=== PATIENT | male | born 1955 | race Caucasian/White ===

== ENCOUNTER 2017-02-24 09:35 | Observation (INO) | payer SELFPAY ==
[~2017-02-24 09:35] MED LIST: IBUP800T23 PO; NOVO7030P2 SQ
[2017-02-24 09:37] VITALS: BP 164/79; PULSE 99; RESP 15; TEMP 98.7; O2SAT 98
[2017-02-24] MEDS ORDERED: NOVO7030P2 SQ (09:53)
--- NOTE | 2017-02-24 10:02 | PD ---
HPI Chief Complaint: ENT Complaint Time Seen by Provider: 09:48 Travel History International Travel<30 days: No Contact w/Intl Traveler<30days: No Traveled to known affect area: No History of Present Illness HPI This 61-year-old man who presents to the emergency room complaining of sore throat difficulty swallowing and muffled voice. He states that he's had strep throat many times in the past and this feels similar. He felt like when he ate croatian fries last night for dinner he scratched the back of his throat. He feels like it got stuck in his throat. He hasn't really been able to swallow well since then. He tried to take pills this morning and felt stuck. He feels like swelling and constriction in his throat. He had subjective chills and sweats overnight. He has no fever now. No cough. He otherwise has been feeling generally well and healthy. His a history diabetes, takes 70/30 insulin for it. He has COPD but he does not take any medications for this. Is not on any inhaled steroids. History Past Medical History Narrative Medical Diabetes COPD Hypertension Tetanus Vaccination: Unknown Influenza Vaccination: No Social History Alcohol Use: Yes (daily) Tobacco Use: No Allergies-Medications (Allergen,Severity, Reaction): Coded Allergies: No Known Allergies (Verified , 02/24/17) Reported Meds & Prescriptions Reported Meds & Active Scripts Active Reported Novolin 70-30 Inj (Insulin Human Isoph/Insulin Regular) 1,000 Unit/10 Ml Vial 42 Units SQ Review of Systems Except as stated in HPI: all other systems reviewed are Neg Physical Exam Narrative GENERAL: Well-appearing 61-year-old man, no acute distress. Able to speak but his voice just on the little bit off. SKIN: Focused skin assessment warm/dry. HEAD: Atraumatic. Normocephalic. EYES: Pupils equal and round. No scleral icterus. No injection or drainage. ENT: No nasal bleeding or discharge. Mucous membranes pink and moist. Enlarged tonsils with a little bit of inflammation in exudates especially on the left. NECK: Trachea midline. Mild adenopathy with tenderness especially on the left. CARDIOVASCULAR: Regular rate and rhythm. No murmur appreciated. RESPIRATORY: No accessory muscle use. Clear to auscultation. Breath sounds equal bilaterally. GASTROINTESTINAL: Abdomen soft, non-tender, nondistended. Hepatic and splenic margins not palpable. MUSCULOSKELETAL: No obvious deformities. Data Data Last Documented VS Vital Signs Date Time Temp Pulse Resp B/P Pulse Ox O2 Delivery O2 Flow Rate FiO2 02/24/17 09:37 98.7 99 15 164/79 98 Orders Soft Tissue Neck (02/24/17 ) Group A Rapid Strep Screen (02/24/17 09:57) Strep Culture (Group A) (02/24/17 10:00) Iv Access Insert/Monitor (02/24/17 10:45) Complete Blood Count With Diff (02/24/17 10:45) Comprehensive Metabolic Panel (02/24/17 10:45) Sodium Chlor 0.9% 1000 Ml Inj (Ns 1000 M (02/24/17 10:45) Dexamethasone Inj (Decadron Inj) (02/24/17 10:45) Ampicillin-Sulbactam Inj (Unasyn Inj) (02/24/17 10:45) Admit Order (Ed Use Only) (02/24/17 ) Labs Laboratory Tests Test 02/24/17 11:17 White Blood Count 10.2 TH/MM3 Red Blood Count 4.90 MIL/MM3 Hemoglobin 14.5 GM/DL Hematocrit 41.6 % Mean Corpuscular Volume 84.9 FL Mean Corpuscular Hemoglobin 29.7 PG Mean Corpuscular Hemoglobin 34.9 % Concent Red Cell Distribution Width 13.0 % Platelet Count 258 TH/MM3 Mean Platelet Volume 8.0 FL Neutrophils (%) (Auto) 77.1 % Lymphocytes (%) (Auto) 12.4 % Monocytes (%) (Auto) 9.2 % Eosinophils (%) (Auto) 0.4 % Basophils (%) (Auto) 0.9 % Neutrophils # (Auto) 7.8 TH/MM3 Lymphocytes # (Auto) 1.3 TH/MM3 Monocytes # (Auto) 0.9 TH/MM3 Eosinophils # (Auto) 0.0 TH/MM3 Basophils # (Auto) 0.1 TH/MM3 CBC Comment DIFF FINAL Differential Comment Sodium Level 136 MEQ/L Potassium Level 4.3 MEQ/L Chloride Level 99 MEQ/L Carbon Dioxide Level 27.9 MEQ/L Anion Gap 9 MEQ/L Blood Urea Nitrogen 16 MG/DL Creatinine 1.33 MG/DL Estimat Glomerular Filtration 55 ML/MIN Rate Random Glucose 278 MG/DL Calcium Level 8.9 MG/DL Total Bilirubin 1.3 MG/DL Aspartate Amino Transf 13 U/L (AST/SGOT) Alanine Aminotransferase 24 U/L (ALT/SGPT) Alkaline Phosphatase 44 U/L Total Protein 7.5 GM/DL Albumin 3.6 GM/DL [facility] Medical Decision Making Medical Screen Exam Complete: Yes Emergency Medical Condition: Yes Interpretation(s) LABS: CBC unremarkable. CMP remarkable for mildly elevated glucose. Soft tissue neck x-ray: Possible mild thickening of the epiglottis. Differential Diagnosis Strep pharyngitis, tonsillitis, epiglottitis, pharyngeal scratch or irritation, foreign body, other Narrative Course Medical decision making This 61-year-old man who presents emergency department with tightness in his throat and fullness in his throat, swallowing difficulties, pain, subjective chills, cervical adenopathy, and history of recurrent strep throat. He looks well. He does have some tonsillitis findings on exam. We'll check strep. We' ll also check a soft tissue neck. He does not look toxic. He is not drooling. Likely treatment with steroids and antibiotics. FINAL: 61-year-old man, sore throat muffled voice subjective chills with x-ray with possible mild thickening of the epiglottis. He's having difficulty swallowing but is not drooling. He describes minimal the mother breathing. He overall looks very well. He was given IV steroids IV Augmentin, we'll plan on watching him overnight in the hospital. If he improves I don't think he needs any further evaluation. Consider ENT consult if needed. Diagnosis Primary Impression: Dysphagia Admitting Information Admitting Physician Requests: Harsh Garcia MD Feb 24, 2017 10:02
--- NOTE | 2017-02-24 10:41 | RADRPT ---
EXAM DATE/TIME: 02/24/2017 10:11 [place] COMPARISON: No previous studies available for comparison. INDICATIONS : Inflammation. MEDICAL HISTORY : None. SURGICAL HISTORY : None. ENCOUNTER: Initial ACUITY: 1 day PAIN SCORE: 7/10 LOCATION: Bilateral neck Anterior FINDINGS: 2 views of the neck soft tissues demonstrate no prevertebral soft tissue swelling. There is no deviat ion of the airway. Epiglottis may be minimally thickened. Larynx demonstrates no abnormality. There i s degenerative disc disease with anterior osteophytes at C3-C4. Visualized upper lung zones are clear . No radiopaque foreign bodies visualized. CONCLUSION: Possible mild thickening of the epiglottis. Otherwise, no abnormality is identified. Galileo Luz MD on February 24, 2017 at 10:37 Board Certified Radiologist. This report was verified electronically.
[2017-02-24] MEDS ORDERED: SODIUM CHLOR 0.9% 1000 ML INJ 1,000 ML IV ONE (10:45)
[2017-02-24] MEDS ORDERED: AMPICILLIN-SULBACTAM INJ 3 GM in SODIUM CHLORIDE 0.9% INJ 100 ML IV ONE (10:45)
[2017-02-24] MEDS ORDERED: DEXAMETHASONE SOD PHOS 20 MG/5 ML VIAL IV PUSH ONE (10:45)
[2017-02-24 11:28] LABS: AUTOMATED NEUTROPHIL # 7.8 TH/MM3 (1.8-7.7); BASOPHIL # 0.1 TH/MM3 (0-0.2); BASOPHIL % 0.9 % (0.0-2.0); EOSINOPHIL % 0.4 % (0.0-4.0); HEMATOCRIT 41.6 % (39.0-51.0); HEMO FLAGS DIFF FINAL; LYMPH % 12.4 % (9.0-44.0); LYMPHOCYTE # 1.3 TH/MM3 (1.0-4.8); MEAN CELL VOLUME 84.9 FL (80.0-100.0); MEAN CORPUSCULAR HEMOGLOBIN 29.7 PG (27.0-34.0); MEAN CORPUSCULAR HGB CONC 34.9 % (32.0-36.0); MONO % 9.2 % (0.0-8.0); NEUT % 77.1 % (16.0-70.0); PLATELET COUNT 258 TH/MM3 (150-450); WHITE BLOOD COUNT 10.2 TH/MM3 (4.0-11.0)
[2017-02-24] MEDS ORDERED: ONDANSETRON HCL 4 MG/2 ML VIAL IVP PRN (11:30)
[2017-02-24] MEDS ORDERED: METOCLOPRAMIDE HCL 10 MG/2 ML VIAL IV PUSH PRN (11:30)
[2017-02-24] MEDS ORDERED: oxyCODONE/ACETAMINOPHEN 10 MG/325 MG TAB PO PRN (11:30)
[2017-02-24] MEDS ORDERED: PROCHLORPERAZINE 25 MG SUPP RECTAL PRN (11:30)
[2017-02-24] MEDS ORDERED: LACTULOSE SYRUP 20 GM/30 ML CUP PO PRN (11:30)
[2017-02-24] MEDS ORDERED: MORPHINE SULFATE 4 MG/ML INJ IV PRN ×3 (11:30)
[2017-02-24] MEDS ORDERED: oxyCODONE/ACETAMINOPHEN 5 MG/325 MG TAB PO PRN (11:30)
[2017-02-24] MEDS ORDERED: BISACODYL 10 MG SUPP RECTAL PRN (11:30)
[2017-02-24] MEDS ORDERED: NALOXONE HCL 0.4 MG/ML AMP IV PRN (11:30)
[2017-02-24] MEDS ORDERED: ZOLPIDEM TARTRATE 5 MG TAB PO PRN (11:30)
[2017-02-24] MEDS ORDERED: SODIUM CHLORIDE 0.9% FLUSH 10 ML FLUSH IV FLUSH PRN ×2 (11:30→15:45)
[2017-02-24] MEDS ORDERED: SENNOSIDES 8.6 MG TAB PO PRN (11:30)
[2017-02-24] MEDS ORDERED: ACETAMINOPHEN 325 MG TAB PO PRN ×2 (11:30)
[2017-02-24] MEDS ORDERED: MAGNESIUM HYDROXIDE SUSP 30 ML CUP PO PRN (11:30)
[2017-02-24] MEDS ORDERED: GLUCAGON 1 MG/ML VIAL OTHER PRN (11:45)
[2017-02-24] MEDS ORDERED: DEXTROSE 50% IN WATER 50 ML VIAL(D50) IV PRN (11:45)
[2017-02-24 11:49] LABS: ALT (GPT) 24 U/L (12-78); ANION GAP 9 MEQ/L (5-15); AST (GOT) 13 U/L (15-37); BICARBONATE 27.9 MEQ/L (21.0-32.0); BLOOD UREA NITROGEN 16 MG/DL (7-18); CHLORIDE 99 MEQ/L (98-107); GLOMERULAR FILTRATION RATE 55 ML/MIN (>89); POTASSIUM 4.3 MEQ/L (3.5-5.1); SODIUM (NA) 136 MEQ/L (136-145)
[2017-02-24 11:51] LABS: ALKALINE PHOSPHATASE 44 U/L (45-117); TOTAL BILIRUBIN ADULT 1.3 MG/DL (0.2-1.0)
[2017-02-24 12:40] VITALS: BP 154/68; PULSE 93; RESP 22; O2SAT 98
[2017-02-24] MEDS: SODIUM CHLOR 0.9% 1000 ML INJ 1,000 ML IV SCH ×2 (12:41→23:30)
--- NOTE | 2017-02-24 13:37 | HHI.HP ---
[facility] No Primary Care Physician Admission Diagnosis dysphagia, possible epiglottitis Diagnoses: (1) Dysphagia Diagnosis: Principal (2) Diabetes Diagnosis: Principal (3) Alcohol abuse Diagnosis: Secondary (4) Noncompliance Diagnosis: Secondary (5) COPD (chronic obstructive pulmonary disease) Diagnosis: Secondary (6) Hypertension Diagnosis: Secondary (7) Renal insufficiency Chief Complaint: Dysphagia Travel History International Travel<30 Days: No Contact w/Intl Traveler <30 Da: No Traveled to Known Affected Are: No History of Present Illness Written by Maribel Edouard, acting as scribe for Dr. Goodman on 02/24/17 at 1337. Mr. Ordoñez is a 61-year-old male patient with a known medical history of diabetes mellitus, COPD and hypertension who presented to the ED with complaints of difficulty swallowing. Patient states that as he was eating dinner last night he experienced some dysphagia, throat pain and a feeling "of the food getting stuck". Pain sore and throbbing in nature, mostly in the left side of the throat and rated his pain 10/10 at its worse. Also states that he woke up this morning and attempted swallowing his pills and felt "like they were getting stuck". Last evening he admits to associated chills and feeling feverish but never took his temperature. Does complain of associated cough. Patient did take Aleve this morning with little pain relief. Does state that he has a history of recurrent strep in the past but it has been several years since his last infection. Denies any other illness or associated symptoms including headaches, chest pain, palpitations, shortness of breath, abdominal pain, nausea, vomiting, diarrhea or dysuria. Denies any change in appetite. States he has not seen his PCP in many years due to lack of insurance and inability to afford his medications. He currently takes insulin at home but has not had his a1c checked in many years. PATIENT STATES THAT HE DRINKS ANYWHERE FROM 2 TO 12 BEERS A DAY MOST DAYS NOW Review of Systems Constitutional: COMPLAINS OF: Diaphoretic episodes, Fatigue, Fever, Chills, Change in appetite, DENIES: Weight gain, Weight loss, Dizziness Endocrine: DENIES: Heat/cold intolerance, Polydipsia, Polyuria, Polyphagia Eyes: DENIES: Blurred vision, Diplopia, Eye inflammation, Eye pain, Vision loss , Photosensitivity Ears, nose, mouth, throat: COMPLAINS OF: Throat pain, Odynophagia, DENIES: Tinnitus, Hearing loss, Vertigo, Nasal discharge, Oral lesions Respiratory: COMPLAINS OF: Cough, Sputum production, DENIES: Apneas, Snoring, Wheezing Cardiovascular: DENIES: Chest pain, Palpitations, Syncope, Dyspnea on Exertion , PND Gastrointestinal: COMPLAINS OF: Difficulty Swallowing, DENIES: Abdominal pain , Black stools, Bloody stools, Constipation, Diarrhea, Nausea, Vomiting Musculoskeletal: DENIES: Joint pain, Muscle aches, Stiffness, Joint Swelling Hematologic/lymphatic: DENIES: Bruising Immunologic/allergic: DENIES: Eczema, Urticaria Neurologic: COMPLAINS OF: Speech Problems, DENIES: Abnormal gait, Headache, Localized weakness, Paresthesias, Seizures Psychiatric: COMPLAINS OF: Anxiety, Depression, DENIES: Confusion, Agitation, Suicidal Ideation, Homicidal Ideation, Delusions Except as stated in HPI: all other systems reviewed are Neg Past Family Social History Past Medical History Type 2 diabetes mellitus COPD Hypertension NONCOMPLIANCE Past Surgical History Denies any surgical history. Reported Medications Reported Meds & Active Scripts Active Reported Novolin 70-30 Inj (Insulin Human Isoph/Insulin Regular) 1,000 Unit/10 Ml Vial 42 Units SQ Allergies: Coded Allergies: No Known Allergies (Verified , 02/24/17) Active Ordered Medications Current Medications Medications (Trade) Dose Ordered Sig/Nasrin Route Start Time Stop Time Status Last Admin (NS 1000 ml Inj) 1,000 ml @ 83 mls/hr Q12H3M IV 02/24/17 11:27 02/24/17 12:41 (NS Flush) 2 ml UNSCH PRN IV FLUSH 02/24/17 11:30 (NS Flush) 2 ml BID IV FLUSH 02/24/17 21:00 (Tylenol) 650 mg Q4H PRN PO 02/24/17 11:30 UNV (Zofran Inj) 4 mg Q6H PRN IVP 02/24/17 11:30 UNV (Reglan Inj) 5 mg Q6H PRN IV PUSH 02/24/17 11:30 UNV (Compazine Supp) 25 mg Q12H PRN RECTAL 02/24/17 11:30 (Ambien) 5 mg HS PRN PO 02/24/17 11:30 (Lovenox Inj) 40 mg Q24H SQ 02/24/17 11:30 UNV (Tylenol) 650 mg Q6H PRN PO 02/24/17 11:30 UNV (Percocet 5-325 Mg) 1 tab Q6H PRN PO 02/24/17 11:30 UNV (Percocet 10-325 Mg) 1 tab Q6H PRN PO 02/24/17 11:30 UNV (Morphine Inj) 2 mg Q3H PRN IV 02/24/17 11:30 UNV (Morphine Inj) 4 mg Q3H PRN IV 02/24/17 11:30 UNV (Morphine Inj) 4 mg Q3H PRN IV 02/24/17 11:30 UNV (Narcan Inj) 0.4 mg UNSCH PRN IV 02/24/17 11:30 UNV (Lexie-Colace) 1 tab BID PO 02/24/17 21:00 (Milk Of Magnesia Liq) 30 ml Q12H PRN PO 02/24/17 11:30 (Senokot) 17.2 mg Q12H PRN PO 02/24/17 11:30 (Dulcolax Supp) 10 mg DAILY PRN RECTAL 02/24/17 11:30 (Lactulose Liq) 30 ml DAILY PRN PO 02/24/17 11:30 (D50w (Vial) Inj) 50 ml UNSCH PRN IV 02/24/17 11:45 (Glucagon Inj) 1 mg UNSCH PRN OTHER 02/24/17 11:45 (Unasyn Inj) 3 gm Q6H IM 02/24/17 11:45 UNV (Decadron Inj) 4 mg Q12HR IV PUSH 02/24/17 21:00 UNV (NovoLIN 70/30 INJ) 40 units BID@08,17 SQ 02/24/17 17:00 UNV Family History Paternal medical history significant for CABG, at age 86 years of age. No significant maternal family medical history. Social History Patient is but , lives with daughter. Denies any current tobacco use, admits to a 40 year smoking history, quit July 2010. Admits to occasional alcohol use. Does admit to smoking marijuana daily. Patient states he smokes marijuana daily Patient states he has beer daily anywhere from 2-12 beers a day Placed on CIWA protocol Physical Exam Vital Signs Vital Signs Date Time Temp Pulse Resp B/P Pulse Ox O2 Delivery O2 Flow Rate FiO2 02/24/17 12:40 93 22 154/68 98 Room Air 02/24/17 09:37 98.7 99 15 164/79 98 Physical Exam GENERAL: Well-nourished, well-developed patient male patient, in no apparent distress. SKIN: No rashes, ecchymoses or lesions. Warm and dry. HEAD: Atraumatic. Normocephalic. Pupils equal round and reactive. Extraocular motions intact. No injection or drainage. Nose without bleeding. Throat with erythema. Left tonsil swelling. Cervical adenopathy. No exudate noted. Uvula midline. Airway patent. Tongue is midline NECK: No JVD. Supple. CARDIOVASCULAR: Regular rate and rhythm. No murmur appreciated. S1-S2 no S3 or S4 no heave or thrill or rub or gallop RESPIRATORY: Clear to auscultation. Breath sounds equal bilaterally. No wheezes , rales, or rhonchi. GASTROINTESTINAL: Abdomen soft, non-tender, nondistended. No guarding. Obese MUSCULOSKELETAL: Extremities without clubbing, cyanosis, or edema. No joint tenderness, effusion, or edema noted. NEUROLOGICAL: Awake and alert. Cranial nerves II through XII intact. Motor and sensory grossly within normal limits. Five out of 5 muscle strength in all muscle groups. Normal speech. Insight and judgment is good mood and behaviors appropriate Laboratory Laboratory Tests Test 02/24/17 11:17 White Blood Count 10.2 Red Blood Count 4.90 Hemoglobin 14.5 Hematocrit 41.6 Mean Corpuscular Volume 84.9 Mean Corpuscular Hemoglobin 29.7 Mean Corpuscular Hemoglobin 34.9 Concent Red Cell Distribution Width 13.0 Platelet Count 258 Mean Platelet Volume 8.0 Neutrophils (%) (Auto) 77.1 Lymphocytes (%) (Auto) 12.4 Monocytes (%) (Auto) 9.2 Eosinophils (%) (Auto) 0.4 Basophils (%) (Auto) 0.9 Neutrophils # (Auto) 7.8 Lymphocytes # (Auto) 1.3 Monocytes # (Auto) 0.9 Eosinophils # (Auto) 0.0 Basophils # (Auto) 0.1 CBC Comment DIFF FINAL Differential Comment Sodium Level 136 Potassium Level 4.3 Chloride Level 99 Carbon Dioxide Level 27.9 Anion Gap 9 Blood Urea Nitrogen 16 Creatinine 1.33 Estimat Glomerular Filtration 55 Rate Random Glucose 278 Calcium Level 8.9 Total Bilirubin 1.3 Aspartate Amino Transf 13 (AST/SGOT) Alanine Aminotransferase 24 (ALT/SGPT) Alkaline Phosphatase 44 Total Protein 7.5 Albumin 3.6 Date/Time Procedure Status Source Growth 02/24/17 10:00 Group A Streptococcus Screen ([facility]) - Final Complete Throat 02/24/17 10:00 Group A Streptococcus Screen Received Throat Pending Result Diagram: 02/24/17 1117 02/24/17 1117 Imaging Last Impressions Soft Tissue Neck X-Ray 02/24/17 0000 Signed Impressions: Service Date/Time: Sunday, February 24, 2017 10:11 - CONCLUSION: Possible mild thickening of the epiglottis. Otherwise, no abnormality is identified. Galileo Luz MD Assessment and Plan Problem List: (1) Dysphagia ICD Code: R13.10 Status: Acute (2) Diabetes ICD Code: E11.9 Status: Acute (3) Noncompliance ICD Code: Z91.19 Status: Acute (4) COPD (chronic obstructive pulmonary disease) ICD Code: J44.9 Status: Acute (5) Hypertension ICD Code: I10 Status: Acute (6) Alcohol abuse ICD Code: F10.10 Status: Acute Assessment and Plan Mr. Ordoñez is a 61-year-old male patient with a known medical history of diabetes mellitus, COPD and hypertension who presented to the ED with complaints of difficulty swallowing. Patient states that as he as eating dinner last night he experienced some dysphagia, throat pain and a feeling "of the food getting stuck". Patient states his health has generally been good and the only medication he takes in his Insulin 70/30 40 units BID. Has not seen his PCP in many years due to lack of insurance. Does not check his BP or a1C regularly or take any antihypertensives. Has quit smoking roughly 6 years ago. Positive for a [id number] smoking history. Epiglottis with associated dysphagia: Soft tissue neck x-ray obtained and reviewed showing mild thickening of the epiglottis. Rapid strep test negative. Throat culture retrieved and pending. Follow. Decadron 10 mg IV x 1 given in ED. Scheduled Decadron 4 mg IV q12hr. Ampicillin 3 g IV x 1 given in ED. Start Unasyn 3 g q6h IV. Control pain, Oxycodone PO PRN per pain scale. Morphine IV PRN per pain scale. Status post 1L NS bolus given in ED. Prevent dehydration, continue NS at 83 ml/hr. Consulted speech therapy, recommendations for clear liquid diet at this time. No aspiration noted. Continue to monitor. Acute kidney injury, unknown cause: Creatinine 1.33 on presentation, no prior records to compare history. Was given 1 L NS bolus in ED. Will continue IVF. Hypertension, chronic: Mildly elevated, systolic 150's. Patient does not take any antihypertensives at home, will continue to monitor. May start low dose antihypertensive if needed. When necessary clonidine Type 2 diabetes mellitus: Random glucose 278 on presentation. ACCU checks ACHS. Sliding scale insulin, cover as needed. Continue home insulin, Novolin 70/30 40 units BID. Will consult life educator and obtain Hemoglobin a1c. Follow. Noncompliance due to funds DVT Prophylaxis: SCDs/Lovenox 40 mg sq q24hr. Continue on GI and DVT prophylaxis The exam, history, and the medical decision-making described in the above note were completed with the assistance of the mid-level provider. I reviewed and agree with the findings presented. I attest that I had a [id number] encounter with the patient on the same day, and personally performed and documented my assessment and findings in the medical record. Problem Qualifiers (1) Diabetes: Maribel Edouard Feb 24, 2017 13:37 Narayan Ayala DO Feb 24, 2017 15:33
[2017-02-24 14:08] VITALS: BP 155/78; PULSE 93; RESP 18; TEMP 98.3; O2SAT 94
[2017-02-24] MEDS ORDERED: AMPICILLIN-SULBACTAM INJ 3 GM VIAL IM SCH (15:00)
[2017-02-24] MEDS: AMPICILLIN-SULBACTAM INJ 3 GM in SODIUM CHLORIDE 0.9% INJ 100 ML IV SCH ×2 (15:42→22:55)
[2017-02-24] MEDS: ENOXAPARIN SODIUM 40 MG/0.4 ML SYRINGE SQ SCH (15:43)
[2017-02-24] MEDS: PANTOPRAZOLE SOD 40 MG DELAYED RELEASE TAB PO SCH (15:45)
[2017-02-24] MEDS ORDERED: cloNIDine HCL 0.1 MG TAB PO PRN (15:45)
[2017-02-24] MEDS ORDERED: LORazepam 2 MG TAB PO PRN (15:45)
[2017-02-24] MEDS ORDERED: FLUMAZENIL 0.5 MG/5 ML VIAL IV PUSH PRN (15:45)
[2017-02-24] MEDS ORDERED: LORazepam 1 MG TAB PO PRN (15:45)
[2017-02-24] MEDS ORDERED: LORazepam 2 MG/ML VIAL IV PUSH PRN ×4 (15:45)
[2017-02-24] MEDS: MULTIVITAMINS/MINERALS THERAPEUTIC TAB PO SCH (16:46)
[2017-02-24] MEDS: THIAMINE HCL 100 MG TAB PO SCH (16:46)
[2017-02-24] MEDS: FOLIC ACID 1 MG TAB PO SCH (16:46)
[2017-02-24] MEDS: INSULIN ASPART SUPPLEMENTAL SCALE SQ SCH ×2 (17:09→20:22)
[2017-02-24] MEDS: INSULIN HUMAN NPH/R 70/30 1,000 UNITS/10 ML VIAL SQ SCH (17:10)
[2017-02-24 19:32] VITALS: BP 169/78; PULSE 101; RESP 18; TEMP 98; O2SAT 96
[2017-02-24 19:50] VITALS: O2SAT 97
[2017-02-24] MEDS: DOCUSATE SODIUM 50 MG/SENNA 8.6 MG TAB PO SCH (20:09)
[2017-02-24] MEDS: DEXAMETHASONE SOD PHOS 4 MG/ML VIAL IV PUSH SCH (20:21)
[2017-02-24] MEDS: SODIUM CHLORIDE 0.9% FLUSH 10 ML FLUSH IV FLUSH SCH (20:23)
[2017-02-24] MEDS ORDERED: SODIUM CHLORIDE 0.9% FLUSH 10 ML FLUSH IV FLUSH SCH (21:00)
[2017-02-24 23:36] VITALS: BP 142/78; PULSE 67; RESP 18; TEMP 98.4; O2SAT 97
[2017-02-25] VITALS (7 sets, daily range): BP systolic 134–170; BP diastolic 65–78; PULSE 74–84; RESP 18–21; TEMP 97.4–98.5; O2SAT 95–100
[2017-02-25] MEDS: AMPICILLIN-SULBACTAM INJ 3 GM in SODIUM CHLORIDE 0.9% INJ 100 ML IV SCH (04:22)
[2017-02-25] MEDS: INSULIN ASPART SUPPLEMENTAL SCALE SQ SCH ×4 (06:35→20:42)
[2017-02-25] MEDS: SODIUM CHLOR 0.9% 1000 ML INJ 1,000 ML IV SCH (06:51)
[2017-02-25] MEDS: INSULIN HUMAN NPH/R 70/30 1,000 UNITS/10 ML VIAL SQ SCH ×2 (08:14→17:20)
[2017-02-25] MEDS: FOLIC ACID 1 MG TAB PO SCH (08:15)
[2017-02-25] MEDS: PANTOPRAZOLE SOD 40 MG DELAYED RELEASE TAB PO SCH (08:15)
[2017-02-25] MEDS: THIAMINE HCL 100 MG TAB PO SCH (08:15)
[2017-02-25] MEDS: MULTIVITAMINS/MINERALS THERAPEUTIC TAB PO SCH (08:15)
[2017-02-25] MEDS: DEXAMETHASONE SOD PHOS 4 MG/ML VIAL IV PUSH SCH (08:17)
[2017-02-25] MEDS: SODIUM CHLORIDE 0.9% FLUSH 10 ML FLUSH IV FLUSH SCH ×2 (08:18→20:43)
[2017-02-25] MEDS: DOCUSATE SODIUM 50 MG/SENNA 8.6 MG TAB PO SCH ×2 (08:20→20:42)
--- NOTE | 2017-02-25 09:34 | HHI.PR ---
Subjective Remarks Follow up for epiglottitis/tonsillitis. The patient reports feeling much better. Still reports some mild odynophagia but improved compared to yesterday. His left cervical lymphadenopathy also improved, much less tender to palpation today. He reports an occasional cough productive of clear sputum. Denies fevers /chills. He is tolerating oral intake. He reports he's supposed to leave for [place] tomorrow morning, plans on driving, wants to be discharged early in am. Objective Vitals Vital Signs Date Time Temp Pulse Resp B/P Pulse Ox O2 Delivery O2 Flow Rate FiO2 02/25/17 07:53 97.4 80 18 162/78 97 02/25/17 04:20 98.0 74 21 134/76 100 02/24/17 23:36 98.4 67 18 142/78 97 02/24/17 19:50 97 02/24/17 19:32 98.0 101 18 169/78 96 02/24/17 14:08 98.3 93 18 155/78 94 02/24/17 12:40 93 22 154/68 98 Room Air 02/24/17 09:37 98.7 99 15 164/79 98 Result Diagram: 02/24/17 1117 02/24/17 1117 Imaging Last Impressions Soft Tissue Neck X-Ray 02/24/17 0000 Signed Impressions: Service Date/Time: Friday, February 24, 2017 10:11 - CONCLUSION: Possible mild thickening of the epiglottis. Otherwise, no abnormality is identified. Galileo Luz MD Objective Remarks GENERAL: Well-nourished, well-developed male patient in [facility]. SKIN: Warm and dry. No rash. HEAD: Normocephalic. Atraumatic. ENT: Mucous membranes pink and moist. Posterior oropharynx with mild erythema, left tonsillar edema (grade 1) with exudate. Epiglottis not visualized. Uvula midline. NECK: Supple. Trachea midline. Left anterior cervical lymphadenopathy with minimal TTP. CARDIOVASCULAR: Regular rate and rhythm. S1, S2 noted. No murmur appreciated. RESPIRATORY: No accessory muscle use. Clear to auscultation. Breath sounds equal bilaterally. No stridor. GASTROINTESTINAL: Abdomen soft, non-tender, nondistended. Normoactive bowel sounds x4. MUSCULOSKELETAL: No obvious deformities. Extremities without clubbing, cyanosis , or edema. NEUROLOGICAL: Awake and alert. No obvious cranial nerve deficits. Motor grossly within normal limits. Normal speech. PSYCHIATRIC: Appropriate mood and affect; insight and judgment normal. Medications and IVs Current Medications Medications (Trade) Dose Ordered Sig/Nasrin Route Start Time Stop Time Status Last Admin (NS 1000 ml Inj) 1,000 ml @ 83 mls/hr Q12H3M IV 02/24/17 11:27 02/25/17 06:51 (NS Flush) 2 ml UNSCH PRN IV FLUSH 02/24/17 11:30 (NS Flush) 2 ml BID IV FLUSH 02/24/17 21:00 02/25/17 08:18 (Tylenol) 650 mg Q4H PRN PO 02/24/17 11:30 (Zofran Inj) 4 mg Q6H PRN IVP 02/24/17 11:30 (Reglan Inj) 5 mg Q6H PRN IV PUSH 02/24/17 11:30 (Compazine Supp) 25 mg Q12H PRN RECTAL 02/24/17 11:30 (Ambien) 5 mg HS PRN PO 02/24/17 11:30 (Lovenox Inj) 40 mg Q24H SQ 02/24/17 15:00 02/24/17 15:43 (Tylenol) 650 mg Q6H PRN PO 02/24/17 11:30 (Percocet 5-325 Mg) 1 tab Q6H PRN PO 02/24/17 11:30 (Percocet 10-325 Mg) 1 tab Q6H PRN PO 02/24/17 11:30 (Morphine Inj) 2 mg Q3H PRN IV 02/24/17 11:30 (Morphine Inj) 4 mg Q3H PRN IV 02/24/17 11:30 (Morphine Inj) 4 mg Q3H PRN IV 02/24/17 11:30 (Narcan Inj) 0.4 mg UNSCH PRN IV 02/24/17 11:30 (Lexie-Colace) 1 tab BID PO 02/24/17 21:00 02/24/17 20:09 (Milk Of Magnesia Liq) 30 ml Q12H PRN PO 02/24/17 11:30 (Senokot) 17.2 mg Q12H PRN PO 02/24/17 11:30 (Dulcolax Supp) 10 mg DAILY PRN RECTAL 02/24/17 11:30 (Lactulose Liq) 30 ml DAILY PRN PO 02/24/17 11:30 (D50w (Vial) Inj) 50 ml UNSCH PRN IV 02/24/17 11:45 (Glucagon Inj) 1 mg UNSCH PRN OTHER 02/24/17 11:45 (NovoLIN 70/30 INJ) 40 units BID@08,17 SQ 02/24/17 17:00 02/25/17 08:14 (Romazicon Inj) 0.2 mg Q1M PRN IV PUSH 02/24/17 15:45 (Ativan) 1 mg Q4H PRN PO 02/24/17 15:45 (Ativan Inj) 1 mg Q4H PRN IV PUSH 02/24/17 15:45 (Ativan) 2 mg Q2H PRN PO 02/24/17 15:45 (Ativan Inj) 2 mg Q2H PRN IV PUSH 02/24/17 15:45 (Ativan Inj) 2 mg Q1H PRN IV PUSH 02/24/17 15:45 (Ativan Inj) 2 mg Q15M PRN IV PUSH 02/24/17 15:45 (Folate) 1 mg DAILY PO 02/24/17 15:45 03/01/17 15:44 02/25/17 08:15 (Vitamin B1) 100 mg DAILY PO 02/24/17 15:45 02/25/17 08:15 (Theragran M Tab) 1 tab DAILY PO 02/24/17 15:45 03/01/17 15:44 02/25/17 08:15 (Protonix) 40 mg DAILY PO 02/24/17 15:45 02/25/17 08:15 (Catapres) 0.1 mg Q6H PRN PO 02/24/17 15:45 (Deltasone) 40 mg DAILY PO 02/26/17 08:00 UNV A/P Problem List: (1) Dysphagia ICD Code: R13.10 Status: Acute (2) Diabetes ICD Code: E11.9 Status: Acute (3) Noncompliance ICD Code: Z91.19 Status: Acute (4) COPD (chronic obstructive pulmonary disease) ICD Code: J44.9 Status: Acute (5) Hypertension ICD Code: I10 Status: Acute (6) Alcohol abuse ICD Code: F10.10 Status: Acute Assessment and Plan 61-year-old male patient with history of DM, COPD, and HTN who presented to the ED with complaints of dysphagia. Has not seen his PCP in many years due to lack of insurance but is compliant with diabetic med 70/30 50u bid. Epiglottis/Tonsillitis with Dysphagia/Odynophagia/Lymphadenopathy: Soft tissue neck x-ray reviewed, shows mild thickening of the epiglottis. -Rapid strep test negative. Throat culture pending. -S/p Decadron 10 mg IV x 1 given in ED, then given 4mg IV bid; now transition to po prednisone 40mg daily x5days. -Change antibiotics from IV Unasyn to IV Rocephin (per UpToDate recommendations) -Supportive treatment with pain control with oxycodone prn, IV morphine prn. -Give IVF with NS. -Consulted speech therapy, recommended clear liquid diet for now, will ask for repeat evaluation today -Repeat neck xray this afternoon -plan to discharge tomorrow am if continued improvement Acute kidney injury: suspect secondary to recent poor oral intake secondary to above. Creatinine 1.33 on presentation, no prior records to compare history. -S/p IVF bolus x1L and continued on maintenance IVF -Repeat BMP pending Hypertension, chronic: Mildly elevated, systolic 150's. -Patient does not take any antihypertensives at home, -BP consistently elevated, will start Norvasc 5mg daily -clonidine prn Type 2 diabetes mellitus: Random glucose 278 on presentation. -Monitor Accuchecks and cover with SSI. -Continue home insulin, Novolin 70/30 40 units BID. -Consult special education paraeducator -Check Hemoglobin a1c. DVT Prophylaxis: SCDs/Lovenox Patient seen and examined with Dr. Jimenez. Discharge Planning 0930hrs: Likely discharge early tomorrow morning if continued improvement. Will need po antibiotics and plan to give prednisone 40mg daily x5days. Patient plans to drive to [place] tomorrow to attend . 1630hrs: Patient's repeat neck xray shows epiglottis wnl, no acute findings. However, patient blood glucose elevated throughout today, 456 at lunchtime, given IVF bolus and 10u IV regular insulin. Repeat glucose 393 this afternoon. Will increase patient's 70/30 from 40u to 45u bid as HgbA1c 10.3 indicating poor control even prior to initiation of steroids. Will also decrease steroids to Prednisone 20mg daily. Hopefully still discharge tomorrow morning if blood glucose better controlled. Attending Statement Attestation Patient seen and examined with Melyssa Wilburn PA-C. The exam, history, and the medical decision-making described in the above note were completed with the assistance of the dictating practitioner. I attest that I had a [id number] encounter with the patient on the same day, and personally performed all of the history, exam, or medical decision making. Discussed case with her thoroughly after seeing the patient, reviewed and agreed with the plan. Please see addendum in History, Physical examination. See below for any errata/additional input: Patient feels a lot better, no shortness of breath, dysphagia is better. Afebrile overnight Not in distress Grade 1 tonsillitis, with suppurative, mild lymphadenopathy in mild tenderness on palpation of the neck No stridor Regular rate and rhythm Clear breath sounds No edema Rapid strep negative, repeat x-ray of the neck, if a lot better, may discharge today. Continue steroids, 40 mg of prednisone for 5 days and stop, switch antibiotics to ceftriaxone, discharge on Ceftin. Needs to follow up with PCP for creatinine. Problem Qualifiers (1) Diabetes: Nicolasa Wilburn PA-C Feb 25, 2017 09:34 Claire Jimenez MD Feb 25, 2017 15:09
[2017-02-25] MEDS ORDERED: cefTRIAXone INJ 1,000 MG in SODIUM CHLORIDE 0.9% INJ 100 ML IV SCH (10:00)
[2017-02-25] MEDS ORDERED: amLODIPine BESYLATE 5 MG TAB PO SCH (10:00)
[2017-02-25] MEDS ORDERED: INSULIN HUMAN REGULAR 1,000 UNITS/10 ML VIAL IV PUSH ONE (12:30)
[2017-02-25] MEDS ORDERED: SODIUM CHLORID 0.9% 500 ML INJ 500 ML IV ONE (12:30)
[2017-02-25 12:47] LABS: AUTOMATED NEUTROPHIL # 11.7 TH/MM3 (1.8-7.7); BASOPHIL % 0.1 % (0.0-2.0); HEMATOCRIT 37.1 % (39.0-51.0); HEMO FLAGS DIFF FINAL; LYMPH % 6.3 % (9.0-44.0); LYMPHOCYTE # 0.8 TH/MM3 (1.0-4.8); MEAN CELL VOLUME 86.6 FL (80.0-100.0); MEAN CORPUSCULAR HEMOGLOBIN 29.9 PG (27.0-34.0); MEAN CORPUSCULAR HGB CONC 34.5 % (32.0-36.0); MONO % 5.6 % (0.0-8.0); PLATELET COUNT 260 TH/MM3 (150-450); RED BLOOD COUNT 4.29 MIL/MM3 (4.50-5.90); RED CELL DISTRIBUTION WIDTH 13.1 % (11.6-17.2); WHITE BLOOD COUNT 13.3 TH/MM3 (4.0-11.0)
[2017-02-25 13:27] LABS: HEMOGLOBIN A1a 1.3 %; HEMOGLOBIN A1b 0.9 %; HEMOGLOBIN Ao 76.3 %; HEMOGLOBIN F 1.8 %; HEMOGLOBIN P3 5.1 %
[2017-02-25 13:47] LABS: ALKALINE PHOSPHATASE 26 U/L (45-117); ALT (GPT) 18 U/L (12-78); ANION GAP 9 MEQ/L (5-15); AST (GOT) 7 U/L (15-37); BICARBONATE 24.4 MEQ/L (21.0-32.0); BLOOD UREA NITROGEN 16 MG/DL (7-18); CHLORIDE 103 MEQ/L (98-107); FREE T4 1.09 NG/DL (0.76-1.46); GLOMERULAR FILTRATION RATE 54 ML/MIN (>89); MAGNESIUM 2.3 MG/DL (1.5-2.5); POTASSIUM 4.1 MEQ/L (3.5-5.1); SODIUM (NA) 136 MEQ/L (136-145); TOTAL BILIRUBIN ADULT 0.9 MG/DL (0.2-1.0)
--- NOTE | 2017-02-25 15:50 | OTSOAPIP ---
TIME SESSION COMPLETED: 1200 TREATMENT TIME: 8 MINS. CHART REVIEWED. PATIENT ADMITTED WITH POSSIBLE EPIGLOTTIS'S. PATIENT TESTED POSITIVE FOR STREP THROAT PER NURSING,. NURSING AND PATIENT REPORTED AMBULATING WITHOUT DIFFICULTY. BILATERAL UPPER EXTREMITIES ACTIVE RANGE OF MOTION, STRENGTH AND COORDINATION ARE WITHIN FUNCTIONAL LIMITS. PATIENT WILL NOT REQUIRE OCCUPATIONAL THERAPY SERVICE. OCCUPATIONAL THERAPY SIGNING OFF, ALL PARITIES AGREED. NO CHARGE - SCREENING ONLY Therapist: WESLEY PIPER OTR/Robert Signature on file
--- NOTE | 2017-02-25 16:17 | RADRPT ---
EXAM DATE/TIME: 02/25/2017 16:04 [facility] COMPARISON: No previous studies available for comparison. INDICATIONS : Epiglottitis MEDICAL HISTORY : None. SURGICAL HISTORY : None. ENCOUNTER: Subsequent ACUITY: 2 days PAIN SCORE: 5/10 LOCATION: Neck FINDINGS: Two view examination of the soft tissues of the neck demonstrates the hypopharyngeal airway to have a grossly normal configuration. The trachea is midline. No radiopaque foreign bodies are seen. CONCLUSION: 1. No acute findings. Epiglottis within normal limits on today's exam. Marshal Fleming MD on February 25, 2017 at 16:13 Board Certified Radiologist. This report was verified electronically.
[2017-02-25] MEDS: ENOXAPARIN SODIUM 40 MG/0.4 ML SYRINGE SQ SCH (16:27)
[2017-02-26] MEDS: SODIUM CHLOR 0.9% 1000 ML INJ 1,000 ML IV SCH (00:14)
[2017-02-26 03:24] VITALS: BP 168/70; PULSE 86; RESP 18; TEMP 98.5; O2SAT 98
[2017-02-26] MEDS: INSULIN ASPART SUPPLEMENTAL SCALE SQ SCH (07:00)
[2017-02-26 07:35] VITALS: BP 166/81; PULSE 69; RESP 21; TEMP 98.4; O2SAT 96
--- NOTE | 2017-02-26 07:43 | HHI.PR ---
Subjective Remarks Follow-up for gastritis/tonsillitis. The patient continues to report significant improvement. He denies any further throat pain, difficulty swallowing. He states that Sunday night he wasn't even able to swallow his own spit. He denies any problems breathing. He denies any fevers or chills. Verbalizes understanding of the treatment plan with antibiotics and steroids and when to follow-up. Blood sugar is better today. Objective Vitals Vital Signs Date Time Temp Pulse Resp B/P Pulse Ox O2 Delivery O2 Flow Rate FiO2 02/26/17 03:24 98.5 86 18 168/70 98 02/25/17 23:38 97.6 82 18 170/74 97 02/25/17 21:04 97 02/25/17 20:15 98.5 84 18 141/65 97 02/25/17 14:20 98.0 75 18 150/75 96 02/25/17 11:50 98.2 84 18 147/68 95 02/25/17 10:45 21 02/25/17 07:53 97.4 80 18 162/78 97 I/O 02/25/17 02/25/17 02/25/17 02/26/17 02/26/17 02/26/17 07:00 15:00 23:00 07:00 15:00 23:00 Intake Total 415 ml 830 ml Balance 415 ml 830 ml Intake IV Total 415 ml 830 ml # Voids 1 2 Result Diagram: 02/25/17 1230 02/25/17 1230 Imaging Last Impressions Soft Tissue Neck X-Ray 02/25/17 1500 Signed Impressions: Service Date/Time: Saturday, February 25, 2017 16:04 - CONCLUSION: 1. No acute findings. Epiglottis within normal limits on today's exam. Marshal Fleming MD Objective Remarks GENERAL: Well-developed well-nourished. In no acute distress. SKIN: Warm and dry. No lesions noted. HEENT: Normocephalic. Pupils equal and round. Mild tonsillar erythema and edema with no exudates. Airway patent. CARDIOVASCULAR: Regular rate and rhythm. No murmur appreciated. RESPIRATORY: No accessory muscle use. Clear to auscultation. Breath sounds equal bilaterally. GASTROINTESTINAL: Abdomen soft, non-tender, nondistended. Bowel sounds x4. MUSCULOSKELETAL: No obvious deformities. No clubbing or cyanosis. No edema. NEUROLOGICAL: Awake and alert. No focal neurological deficits. Moves upper and lower extremities spontaneously. Normal speech. PSYCHIATRIC: Appropriate mood and affect; insight and judgment normal. A/P Problem List: (1) Dysphagia ICD Code: R13.10 Status: Resolved (2) Diabetes ICD Code: E11.9 Status: Chronic (3) Noncompliance ICD Code: Z91.19 Status: Acute (4) COPD (chronic obstructive pulmonary disease) ICD Code: J44.9 Status: Chronic (5) Hypertension ICD Code: I10 Status: Acute (6) Alcohol abuse ICD Code: F10.10 Status: Acute Assessment and Plan 61-year-old male patient with history of DM, COPD, and HTN who presented to the ED with complaints of dysphagia. Has not seen his PCP in many years due to lack of insurance but is compliant with diabetic med 70/30 50u bid. Epiglottis/Tonsillitis with Dysphagia/Odynophagia/Lymphadenopathy: Soft tissue neck x-ray at admission showed mild thickening of the epiglottis, repeat x-ray showed epiglottis within normal limits.. -Rapid strep test negative. -S/p Decadron, transition to po prednisone 20mg daily x5days. -Change IV Rocephin to oral Ceftin and DC -Consulted speech therapy, clear liquid diet advanced to regular SHAW vs CKD: Initially suspected acute injury secondary to recent poor oral intake secondary to above. Creatinine 1.33 on presentation, no prior records to compare history. Creatinine stable at 1.34 s/p IVF. -Possibly underlying CKD, needs PCP follow-up for monitoring Hypertension, chronic: Not optimally controlled. -Patient does not take any antihypertensives at home, -Started on Norvasc 5mg, increase to 10 mg Type 2 diabetes mellitus: Uncontrolled hyperglycemia. Hemoglobin A1c 10.3. -Home Novolin 70/30 was increased to 45 units twice daily -Monitor Accuchecks and cover with SSI. -Consulted nurse informatics educator -Needs continued outpatient PCP follow-up DVT Prophylaxis: SCDs/Lovenox Discharge Planning Discharge patient to home Condition on discharge: Improved Heart healthy diabetic Diet as tolerated Regular activity Rx written: Ceftin, prednisone, Novolin 70/30, amlodipine Follow-up with primary care physician Problem Qualifiers (1) Diabetes: (2) Hypertension: Qualified Code: I10 - Essential hypertension Long,Jhonatan D. PA Feb 26, 2017 07:43
[2017-02-26] MEDS ORDERED: CEFU1TAB20 PO (07:46)
[2017-02-26] MEDS ORDERED: PRED20 PO (07:46)
[2017-02-26] MEDS ORDERED: AMLO10TA2 PO (07:46)
[2017-02-26] MEDS ORDERED: NOVO7030P2 SQ (07:46)
[2017-02-26] MEDS: INSULIN HUMAN NPH/R 70/30 1,000 UNITS/10 ML VIAL SQ SCH (08:00)
[2017-02-26] MEDS: FOLIC ACID 1 MG TAB PO SCH (08:50)
[2017-02-26] MEDS: DOCUSATE SODIUM 50 MG/SENNA 8.6 MG TAB PO SCH (08:50)
[2017-02-26] MEDS: MULTIVITAMINS/MINERALS THERAPEUTIC TAB PO SCH (08:50)
[2017-02-26] MEDS: THIAMINE HCL 100 MG TAB PO SCH (08:51)
[2017-02-26] MEDS: PANTOPRAZOLE SOD 40 MG DELAYED RELEASE TAB PO SCH (08:51)
[2017-02-26] MEDS: SODIUM CHLORIDE 0.9% FLUSH 10 ML FLUSH IV FLUSH SCH (09:00)
[2017-02-26] MEDS ORDERED: predniSONE 20 MG TAB PO SCH ×2 (09:00)
[2017-02-26] MEDS ORDERED: amLODIPine BESYLATE 5 MG TAB PO SCH (09:00)
== END 2017-02-26 11:01 | disposition home or self-care (01) ==
LOC: NEPE 09:35 → INTOOBSV 11:29 → NEDA 11:29 → NEPGCP 14:07
PROVIDERS: ADMIT Hospitalist; ATTEND Hospitalist
DX: R13.10 Dysphagia, unspecified (principal); J05.10 Acute epiglottitis without obstruction; E11.65 Type 2 diabetes mellitus with hyperglycemia; J03.90 Acute tonsillitis, unspecified; R59.0 Localized enlarged lymph nodes; N17.9 Acute kidney failure, unspecified; R05 Cough; R61 Generalized hyperhidrosis; R50.9 Fever, unspecified; I10 Essential (primary) hypertension; J44.9 Chronic obstructive pulmonary disease, unspecified; F41.9 Anxiety disorder, unspecified; F32.9 Major depressive disorder, single episode, unspecified; F10.10 Alcohol abuse, uncomplicated; F12.90 Cannabis use, unspecified, uncomplicated; E66.9 Obesity, unspecified; Z79.4 Long term (current) use of insulin; Z87.891 Personal history of nicotine dependence; Z91.19 Patient's noncompliance with other medical treatment and regimen
CPT/HCPCS: 70360; 80053; 82948; 83036; 83735; 84100; 84439; 84443; 85025; 87081; 87880; 92526; 92610; 96361; 96365; 96366; 96367; 96375; 96376; 99285; G0378; G8996; G8997; G8998; J0295; J0696; J1100; J1650; J1815; J7030; J7040; J7512

== ENCOUNTER 2017-03-20 19:43 | Emergency (ER) | payer SELFPAY ==
[~2017-03-20] VITALS: Ht 180.3 cm; Wt 109.0 kg
[~2017-03-20 19:43] MED LIST changes: +AMLO10TA2 PO; +CEFU1TAB20 PO; -IBUP800T23 PO; +PRED20 PO
[2017-03-20 19:45] VITALS: BP 185/87; PULSE 90; RESP 16; TEMP 98.5; O2SAT 97
--- NOTE | 2017-03-20 20:07 | PD ---
Physical Exam Time Seen by Provider: 20:05 Narrative 61yo M c/o fall Sunday night w/ left hand pain, left rib pain, R hip pain. Tripped over slab in parking lot. Denies hitting head or LOC. Denies anticoagulants. Denies chest pain, SOB. Patient seen in triage. VS reviewed. Patient awaiting bed placement. Data Data Last Documented VS Vital Signs Date Time Temp Pulse Resp B/P (MAP) Pulse Ox O2 Delivery O2 Flow Rate FiO2 03/20/17 19:45 98.5 90 16 185/87 (119) 97 Room Air MDM Supervised Visit with JALIL: Sameera Jauregui Mar 20, 2017 20:07
[2017-03-20 20:16] VITALS: BP 175/86; PULSE 81; RESP 16
--- NOTE | 2017-03-20 20:28 | PD ---
HPI Chief Complaint: Fall Time Seen by Provider: 20:20 Travel History International Travel<30 days: No Contact w/Intl Traveler<30days: No Traveled to known affect area: No History of Present Illness HPI 61-year-old male presents for evaluation after a mechanical fall. He reports that 3 days ago he tripped in a parking lot, fell in his left hand. No head trauma or loss of consciousness. Ambulatory since then. He is complaining of pain primarily in his left hand overlying the fifth metacarpal. Initially he was having some pain in his left anterior rib cage but this is significantly improved and is now only mild. He also endorses a mild sharp shooting pain in his right lower back that radiates into the thigh. He has had sciatic pain before and this feels similar. He denies any bowel or bladder incontinence, saddle and seizure, shortness of breath, abdominal pain, nausea or vomiting, neck pain, numbness or tingling or weakness. He has no other complaints. PFSH Past Medical History Asthma: No Blood Disorders: No Depression: Yes Heart Rhythm Problems: Yes (HTN) Cancer: No Cardiovascular Problems: Yes (HTN) COPD: Yes Diabetes: Yes Patient Takes Glucophage: Yes Diminished Hearing: No Genitourinary: No Hypertension: Yes Immune Disorder: No Musculoskeletal: No Neurologic: No Psychiatric: Yes Reproductive: No Respiratory: Yes Immunizations Current: No Sleep Apnea: No Thyroid Disease: No Tetanus Vaccination: < 5 Years Influenza Vaccination: No Past Surgical History Other Surgery: Yes (biopsy L+ lung) Social History Alcohol Use: Yes (socially) Tobacco Use: No Substance Use: Yes Allergies-Medications (Allergen,Severity, Reaction): Coded Allergies: No Known Allergies (Verified , 03/20/17) Reported Meds & Prescriptions Reported Meds & Active Scripts Active Ibuprofen 800 Mg Tab 800 Mg PO Q6HR PRN Cefuroxime (Cefuroxime Axetil) 500 Mg Tab 500 Mg PO BID Prednisone 20 Mg Tab 20 Mg PO DAILY Amlodipine (Amlodipine Besylate) 10 Mg Tab 10 Mg PO DAILY Novolin 70-30 Inj (Insulin Human Isoph/Insulin Regular) 1,000 Unit/10 Ml Vial 45 Units SQ BIDAC 30 Days Review of Systems Except as stated in HPI: all other systems reviewed are Neg Physical Exam Narrative GENERAL: Well-developed well-nourished male in no acute distress and Motrin the ED. SKIN: Warm and dry. HEAD: Atraumatic. Normocephalic. EYES: Pupils equal and round. No scleral icterus. No injection or drainage. ENT: No nasal bleeding or discharge. Mucous membranes pink and moist. NECK: Trachea midline. No JVD. CARDIOVASCULAR: Regular rate and rhythm. No murmur appreciated. RESPIRATORY: No accessory muscle use. Clear to auscultation. Breath sounds equal bilaterally. GASTROINTESTINAL: Abdomen soft, non-tender, nondistended. Hepatic and splenic margins not palpable. MUSCULOSKELETAL: Slight tenderness to palpation to left hand overlying the fifth metacarpal with no obvious deformity. There is pain with flexion and extension of the left hand but he is able to maintain full range of motion. There is very minimal tenderness to palpation to the anterior left rib cage. There is no tenderness to palpation along the thoracic or lumbar midline spine, no CVA tenderness, no tenderness to palpation to the hips or pelvis. Full range of motion of the lower extremities with full muscle strength. NEUROLOGICAL: Awake and alert. No obvious cranial nerve deficits. Motor grossly within normal limits. Normal speech. Data Data Last Documented VS Vital Signs Date Time Temp Pulse Resp B/P (MAP) Pulse Ox O2 Delivery O2 Flow Rate FiO2 03/20/17 20:52 03/20/17 20:16 81 16 03/20/17 19:45 98.5 97 Room Air Orders Orders Chest, Single Ap (03/20/17 ) Hand, Complete ([id number]) (03/20/17 ) Splint Or Brace Apply/Monitor (03/20/17 21:03) Ibuprofen (Motrin) (03/20/17 21:15) MDM Medical Decision Making Medical Screen Exam Complete: Yes Emergency Medical Condition: Yes Medical Record Reviewed: Yes Differential Diagnosis Metacarpal fracture, contusion, strain, sprain, pneumothorax, hemothorax, herniated nucleus pulposus Narrative Course 61-year-old male presents 3 days after mechanical fall. X-ray imaging of the left hand and chest will be obtained. His lower back pain that radiates into the right leg is consistent with previous sciatic episodes of this patient has experienced and he is having no symptoms to suggest a central spinal cord injury or bony deformity. X-ray imaging reveals an nondisplaced fifth metacarpal fracture. An ulnar gutter splint will be applied. Patient is stable for discharge. Mandatory outpatient referral has been placed as the patient appears to be lacking insurance. Diagnosis Primary Impression: Fracture of fifth metacarpal bone of left hand Qualified Codes: S62.347A - Nondisplaced fracture of base of fifth metacarpal bone. left hand, initial encounter for closed fracture Additional Impressions: Chest wall contusion Qualified Codes: S20.212A - Contusion of left front wall of thorax, initial encounter Lumbosacral radiculopathy Referrals: Hand Surgeon Med/Other Pt SpecificInfo: Prescription(s) given, Orthopedic Instructions Scripts Ibuprofen (Ibuprofen) 800 Mg Tab 800 MG PO Q6HR Y for PAIN, #40 TAB 0 Refills Prov: Tereso Calabrese MD 03/20/17 Disposition: 01 DISCHARGE HOME Condition: Stable Celso Heredia Mar 20, 2017 20:28
--- NOTE | 2017-03-20 20:56 | RADRPT ---
EXAM DATE/TIME: 03/20/2017 20:53 [facility] COMPARISON: CHEST SINGLE AP, July 19, 2014, 11:13. INDICATIONS : Chest pain after fall. MEDICAL HISTORY : None. SURGICAL HISTORY : None. ENCOUNTER: Initial ACUITY: 1 day PAIN SCORE: 10/10 LOCATION: Left chest FINDINGS: A single view of the chest demonstrates the lungs to be symmetrically aerated without evidence of mas s, infiltrate or effusion. The cardiomediastinal contours are unremarkable. Osseous structures are intact. CONCLUSION: No acute disease. No significant change has occurred. Frank Marsh MD on March 20, 2017 at 20:54 Board Certified Radiologist. This report was verified electronically.
[2017-03-20] MEDS ORDERED: IBUP800T23 PO (20:57)
--- NOTE | 2017-03-20 20:57 | RADRPT ---
EXAM DATE/TIME: 03/20/2017 20:54 [facility] COMPARISON: No previous studies available for comparison. INDICATIONS : Left hand pain after fall. 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 SURGICAL HISTORY : None. ENCOUNTER: Initial ACUITY: 1 day PAIN SCORE: 10/10 LOCATION: Left lateral hand. FINDINGS: Nondisplaced fracture involving the base of the fifth metacarpal. There are degenerative changes thro ughout the hand. There are 2 nonspecific dense radiopaque foreign bodies in the soft tissues, one adj acent to the fifth metacarpal and one adjacent to the second metacarpal CONCLUSION: 1. Nondisplaced fracture base of fifth metacarpal. Frank Marsh MD on March 20, 2017 at 20:54 Board Certified Radiologist. This report was verified electronically.
[2017-03-20] MEDS ORDERED: IBUPROFEN 800 MG TAB PO ONE (21:15)
== END 2017-03-20 22:26 | disposition home or self-care (01) ==
LOC: NEPK 19:43
DX: S62.347A Nondisplaced fracture of base of fifth metacarpal bone, left hand, initial encounter for closed fracture (principal); S20.212A Contusion of left front wall of thorax, initial encounter; M54.17 Radiculopathy, lumbosacral region; I10 Essential (primary) hypertension; J44.9 Chronic obstructive pulmonary disease, unspecified; E11.9 Type 2 diabetes mellitus without complications; W01.0XXA Fall on same level from slipping, tripping and stumbling without subsequent striking against object, initial encounter; Y92.481 Parking lot as the place of occurrence of the external cause; Z79.899 Other long term (current) drug therapy
CPT/HCPCS: 29125; 71010; 73130